=== PATIENT | male | born 1965 | race Caucasian/White ===

== ENCOUNTER 2016-12-05 15:45 | Emergency (ER) | payer OTHER ==
--- NOTE | 2016-12-05 16:53 | ERNOTE ---
Head Injury HPI - Narrative Date of Service: 12/05/16 - General Time Seen by Provider: 12/05/16 16:50 Source: patient, family Exam Limitations: no limitations - Immun/Allergies/Home Medications Immunization: IMMUNIZATION HX Immunizations Up to Date No History of Influenza Vaccine No Hx Pneumococcal Vaccination No Allergies/Adverse Reactions: Allergies Allergy/AdvReac Type Severity Reaction Status Date / Time No Known Allergies Allergy Unverified 12/05/16 16:08 Home Medications: HOME MEDICATIONS Metaxalone [Skelaxin] 800 mg PO TID #15 tablet 12/05/16 [Last Taken Unknown] Naproxen Sodium [Anaprox Ds] 550 mg PO Q12H PRN #30 tab 12/05/16 [Last Taken Unknown] - History of Present Illness Narrative: 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 UPPER DOOR HIT HIM IN THE BACK OF THE NECK PUSHING HIS HEAD DOWN AGAINST A LOWER RAIL THAT PUSHED AGAINST HIS ANTERIOR NECK AREA. NO LOC. WORK NURSE BROUGHT HIM HERE Occurred: just prior to arrival Review of Systems - Review of Systems Constitutional: Present: See HPI EYE: Present: no symptoms reported ENT: Present: other - POSTERIOR AND ANTERIOR NECK PAIN, MILD TO MODERATE. Respiratory: Present: no symptoms reported Cardiology: Present: no symptoms reported Gastrointestinal/Abdominal: Present: no symptoms reported Genitourinary: Present: no symptoms reported Musculoskeletal: Present: See HPI, neck pain Skin: Present: no symptoms reported Neurological: Present: no symptoms reported Endocrine: Present: no symptoms reported Hematologic/Lymphatic: Present: no symptoms reported Psych: Present: no symptoms reported All Other Systems: All systems neg except as marked - Patient's Past Medical History Patient History - Medical: No pertinent hx Patient History - Cardiac/Respiratory: No pertinent hx Patient History - Cancer: No Hx of Cancer Patient History - Surgical Procedures: ENT Patient History - Other: None - Social History Living Situations: other Abuse History: No History of abuse Psych History: No pertinent hx Smoking Status: Former smoker Have you smoked in the past 12 months: Yes - uses vape Do you dip or chew tobacco: No Alcohol Use: occasionally Drug Use: none - Immunizations Immunizations Up to Date: No Hx Pneumococcal Vaccination: No History of Influenza Vaccine: No Physical Exam - Physical Exam General Appearance: Present: wd/wn, alert, no apparent distress Eye Exam: Normal inspection: bilateral Ears, Nose, Throat: Present: normal ENT inspection Neck: Present: normal inspection, supple, full range of motion - HE CAME IN WITHOUT C COLLAR AND IS MOVING HIS NECK ALL AROUND TO DEMONSTRATE WHAT HAPPENED. WE HAVE SINCE APPLIED A C COLLAR. HE C/O TENDERNESS TO MID POST NECK, MORE WITH MOVING THAN WITH PALPATION AND SOME DISCOMFORT TO ANT. TRACHEA BUT NO HOARSENESS. NO SIGN OF CONTUSION OR ABRASION. 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 DTR: N=norm/NB=norm/brisk/A=abs/DD=dull/dimin/HC=hyperactive: Tricep (R): Normal , Tricep (L): Normal, Knee (R): Normal, Knee (L): Normal Skin Exam: Present: normal color, warm/dry ED Progress - Vital Signs Vital Signs: Vital Signs 12/05/16 16:01 Temperature 37.3 C Pulse Rate 89 Respiratory 14 Rate Blood Pressure 155/108 O2 Sat by Pulse 95 Oximetry - CT/Ultrasound CT/Ultrasound Narrative: CT CERVICAL = NO ACUTE FX LBUT DOES HAVE SOME CHRONIC DGN DISEASE./ ARGUS - Progress/Reassessment Chief Complaint: Neck Pain/Injury Departure Clinical Impression: Neck contusion Qualifiers: Encounter type: initial encounter Qualified Code(s): S10.93XA - Contusion of unspecified part of neck, initial encounter - Departure Disposition: [facility] Home Health Condition: Fair Instructions: Neck Contusion, [id number] Additional Instructions: ICE TO SORE AREA FOR 20-30 MINS EVERY 4 HOURS UNTIL RECHECKED BY WORKMAN COMP DOCTOR.NO WORK UNTIL THEN . CALL FOR APPOINTMENT IN 48 HRS. REST , GENTLE ACTIVITY . USE THE NAPROSYN AND SKELAXIN DIRECTED UNTIL YOU ARE CLEARED TO RETURN TO WORK . Prescriptions: Metaxalone [Skelaxin] 800 mg PO TID #15 tablet Naproxen Sodium [Anaprox Ds] 550 mg PO Q12H PRN #30 tab PRN Reason: Pain
[2016-12-05] MEDS ORDERED: KETOROLAC TROMETHAMINE 60 MG/2 ML VIAL IM ONE ×2 (17:05→17:07)
[2016-12-05 19:09] VITALS: BP 140/70
== END 2016-12-05 19:00 | disposition home health service (06) ==
LOC: ER 15:45
DX: S10.93XA Contusion of unspecified part of neck, initial encounter (principal); X58.XXXA Exposure to other specified factors, initial encounter; Y93.9 Activity, unspecified; Y92.63 Factory as the place of occurrence of the external cause; Y99.0 Civilian activity done for income or pay